=== PATIENT | male | born 1955 | race Caucasian/White ===

== ENCOUNTER → 2017-12-17 | Outpatient (CLI) | payer OTHER ==
[~2017-12-17] MED LIST: ALLOPURINOL 10100 M1 PO; AMITRIPTYLINE H10 M3 PO; ASPIR 8181 MG PO; ASPIRIN325 PO; ATIVAN0.5 MG PO; ATIVAN1 MG PO; AUGMENTIN 875875 MG PO; B12INJ IM; BACTRIM DS TAB1 EACH PO; BENADRYL25 MG PO; CENTRUM SILVER1 EAC4 PO; CHLORDIAZEPOXID25 M1 PO; CLOBETASOL PROP50 M1 TOP; COLACE 100 MG100 MG PO; COLACE100 MG PO; CORRECTOL5 M1 PO; DIABETA 5MG TABL5 MG; DICLOFENAC SODI75 MG PO; FLAGYL500 M1 PO; FOLIC ACID1 MG PO; GLUCOPHAGE1000 MG PO; HYDROCHLOROTHIA50 MG PO; HYDROCODON-ACE1 EAC7 PO; HYDROCODONE-AP1 EAC6 PO; INDOMETHACIN 2525 MG PO; INDOMETHACIN 5050 M1 PO; LANTUS SUBQ; LEVOTHYROXIN0.125 M1 PO; LEVOTHYROXINE0.2 M1 PO; LISINOPRIL20 MG; LISINOPRIL20 MG PO; LOPRESSOR25 PO; MAGOX 400400 MG PO; MEDROLDOSEPACK PO; MELATONIN3 MG PO; MILK OF MA2400 MG/10 PO; MIRALAX255 GM PO; MOBIC15 MG PO; NICOTINE TRANSD21 M1 TRANSDERM; NITROGLYCERIN0.4 MG SUBLING; NORCO 5-325 TA1 EACH PO; ONDANSETRON HCL4 M2 PO; OXYCODONE HCL 55 MG PO; PAXIL10 MG; PEPCID20 MG PO; PERCOCET 10-321 EACH PO; PHENERGAN 25 MG25 M1 PO; PRENATABS FA T1 EACH PO; PRILOSEC 20 MG20 MG PO; PRINZIDE 20-251 EACH PO; PROTONIX40 M2 PO; ROBAXIN 750 MG750 M1 PO; SEROQUEL 25 MG25 M1 PO; TRAMADOL 50 MG50 MG PO; TRIAMCINOLONE A80 G2 TOP; TRINATE TABLET1 TAB PO; TYLENOL325 MG PO; VICODIN 5-5001 EACH PO; VITAMIN B-1100 M1 PO; VITAMIN B-1100 M2 PO
--- NOTE | 2017-12-31 08:16 | PAINCON ---
[facility] [address] [place] [address] PAIN MANAGEMENT CONSULTATION Name: DANA CID [facility] [id number] Admission: 12/17/17 Attend Phys: Georgia Velazquez MD Discharge: Date of : 59 Report #: [id number] THIS REPORT FOR: //name// CC: Wei Velazquez DATE OF SERVICE: 12/17/2017 FOLLOWUP COMPLAINT: Pain in the left shoulder and neck. HISTORY OF PRESENT ILLNESS: The patient is a 62-year-old gentleman, who has been seen in the Pain Clinic because of pain and discomfort involving his arms, numbness and tingling down in his hands. The patient has undergone cervical epidural steroid injections in the past and gleaned good benefit from the past injections. At this juncture, he has noted pain, which started in about October. He is experiencing some return of pain and discomfort involving his neck and left shoulder area. He has been using ibuprofen. Notes that activities such as sitting, driving and other activities of daily living can be problematic. Denies any new trauma. Rates his pain today as a 5 on a scale of 1-10. ALLERGIES: ATIVAN. CURRENT MEDICATIONS: Ibuprofen 800 mg b.i.d. PAIN CLINIC ASSESSMENT: 1. The patient does not have a history of osteoarthritis or rheumatoid arthritis. 2. Height 5 feet 11 inches, weight 154 pounds, BMI is 21. 3. Vital signs: Blood pressure 117/67, pulse 94, respiratory rate 16, room air saturation 98%, temperature 98.7. 4. Pain score: 5-6/10. 5. Fall risk: The patient has not fallen in the last 3 months. 6. Blood thinners: The patient is not on a blood thinner 7. History of hypertension: The patient is being treated for hypertension. 8. Opioid therapy greater than 6 weeks: The patient is not receiving opioid therapy on a regular basis. 9. Risk assessment tool. 10. Functional assessment tool 11. Recreational drug use: Denies use of recreational drugs. 12. Tobacco use: The patient denies use of tobacco. 13. Alcohol use: The patient drinks alcoholic beverage weekly. PHYSICAL EXAMINATION: GENERAL: The patient is a well-developed, white male. Appears [place] [address] PAIN MANAGEMENT CONSULTATION Name: DANA CID Room: [facility]#: [id number] Admission: 12/17/17 Attend Phys: Georgia Velazquez MD Discharge: Date of : 59 Report #: [id number] ORIENTATION: He is alert and oriented x 3. AFFECT: Affect is appropriate. Speech is fluent. HEENT: Normocephalic, atraumatic. Extraocular eye muscles intact. Sclerae are nonicteric. Hearing within normal limits. Mucous membranes moist. NECK: Without adenopathy or JVD. HEART: Regular rate with normal S1, S2. LUNGS: Clear to auscultation without rales or rhonchi. ABDOMEN: Nontender. EXTREMITIES: Upper extremity, pain and discomfort in the left arm with some numbness in the shoulder and increased pain and discomfort in the neck area -- the patient has had pain, tingling down his left hand, not as problematic today. Muscle strength is judged to be 5/5 for the major muscle groups. Muscle bulk is symmetrical. MUSCULOSKELETAL: Without significant kyphosis, scoliosis or lordosis. Lower muscle strength is judged to be 5/5 for the major muscle groups. Sensation is within normal limits without sensory changes. IMPRESSION: 1. MRI of the cervical spine, C3-C4 intervertebral disk height with moderate to marked bilateral foraminal stenosis and the AP thecal sac with measurement of 0.9 cm. 2. C4-C5 central disk protrusion with effacement of the ventral thecal sac, bilateral facet arthropathy, stjckxtu-kf-vloetv left and moderate right neural foraminal stenosis with AP diameter and thecal distance of 0.8 cm. 3. C5-C6 bilateral hypertrophy of uncovertebral area with left paracentral disk bulging and protrusion. This is resulting in effacement of the central and left thecal sac. Bilateral facet arthropathy with ligamentum flavum thickening. There is ggumawcs-uv-sszlph bilateral neural foraminal stenosis and at least moderate central canal stenosis. AP diameter 0.7 cm. 4. C6-C7 bilateral facet arthropathy without significant ligamentum flavum thickening. AP diameter 0.9 cm. 5. Hypertension. RECOMMENDATIONS: We discussed treatment options with the patient. Risks and benefits of a cervical epidural steroid injection were again reviewed. Possible complications of the procedure were discussed. Possible complications include but are not limited to infection, increased muscle soreness, headache, bleeding, worsening of pain, nerve damage, spinal headache. The patient elects to proceed. PROCEDURE NOTE: The patient was assisted in getting on the table for the procedure. His neck was sterilely prepped with Betadine in the cervical area. 0.25% bupivacaine was used to numb the area. Fluoroscopy using AP as well as lateral imaging was used to guide placement of the needle. A total of 120 mg triamcinolone was injected after a 17-gauge Tuohy with loss of resistance technique was used to gain access to the epidural space. There was no CSF, heme [place] [address] [address] PAIN MANAGEMENT CONSULTATION Name: DANA CID Room: [facility]#: [id number] Admission: 12/17/17 Attend Phys: Georgia Velazquez MD Discharge: Date of : 59 Report #: [id number] or paresthesia. The patient tolerated the procedure well. There were no complications. A total of 37 seconds fluoroscopy time was used. He remained in the Pain Clinic for an appropriate amount of time. Band-Aid was placed. There was no bleeding. He will follow up in the future as needed. We would like to thank you for letting us participate in his care. We hope he continues to improve. <ELECTRONICALLY SIGNED> By: Georgia Velazquez MD 12/31/17 0816 0839 1011N. Gopal Velazquez MD /nt
== END | disposition home or self-care (01) ==
LOC: M.PC 03:05
DX: M50.121 Cervical disc disorder at C4-C5 level with radiculopathy (principal); M48.02 Spinal stenosis, cervical region; M46.92 Unspecified inflammatory spondylopathy, cervical region; I10 Essential (primary) hypertension; Z79.891 Long term (current) use of opiate analgesic; Z88.8 Allergy status to other drugs, medicaments and biological substances; Z87.19 Personal history of other diseases of the digestive system; Z79.899 Other long term (current) drug therapy; Z98.890 Other specified postprocedural states

== ENCOUNTER → 2018-04-17 | Outpatient (CLI) | payer OTHER ==
--- NOTE | 2018-05-07 16:41 | PAINCON ---
[facility] [address] [place] [address] PAIN MANAGEMENT CONSULTATION Name: DANA CID [facility] [id number] Admission: 04/17/18 Attend Phys: Georgia Velazquez MD Discharge: Date of : 59 Report #: [id number] THIS REPORT FOR: //name// CC: Wei Velazquez DATE OF SERVICE: 04/17/2018 FOLLOWUP COMPLAINT: Left shoulder pain. HISTORY OF PRESENT ILLNESS: The patient is a 62-year-old gentleman with a history of cervical radiculopathy. He returns today indicating that his pain continues to be problematic. It is radiating down his left shoulder into his arm. He has gleaned benefits from past injections. Last injection was in 11/2017. At this juncture, he has noticed that his pain has increased. Pain has risen to the level of 6/10. Notes that the pain is worse with sitting, driving a car and other activities. He has had no additional trauma since we saw him last. He has been working a part-time job. Noticed that cleaning at [employer] tends to exacerbate his discomfort. 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 ALLERGIES: ATIVAN. CURRENT MEDICATIONS: Ibuprofen 800 mg. PAIN CLINIC ASSESSMENT: 1. The patient does not have a history of osteoarthritis or rheumatoid arthritis. 2. Height 5 feet 11 inches, weight 144 pounds, BMI is 20. 3. Vital signs: Blood pressure 100/58, heart rate 101, respiratory rate 16, room air saturation 97%, temperature 98 pain score 6/10. 4. Fall risk. The patient has not fallen in the last 3 months. 5. Blood thinner. The patient is not on a blood thinning medication. 6. Hypertension. The patient is being treated for hypertension. 7. Opioid therapy greater than 6 weeks. The patient is not receiving opioid therapy. 8. Risk assessment tool. 9. Functional assessment tool. 10. Recreational drug use. The patient denies use of recreational drugs. 11. Tobacco: The patient denies use of tobacco. 12. Alcohol: The patient denies use of alcoholic beverages. PHYSICAL EXAMINATION: GENERAL: The patient is a well-developed, well-nourished white male. Appears his stated age. He is alert and oriented x 3. [place] [address] PAIN MANAGEMENT CONSULTATION Name: DANA CID Leticia Room: [facility]#: [id number] Admission: 04/17/18 Attend Phys: Georgia Velazquez MD Discharge: Date of : 59 Report #: [id number] is fluent. HEENT: Normocephalic, atraumatic. Extraocular eye muscles intact. Sclerae nonicteric. Hearing is within normal limits. Mucous membranes are moist. NECK: Without adenopathy or JVD. HEART: Regular rate, normal S1, S2. LUNGS: Clear to auscultation without rhonchi or rales. ABDOMEN: Nontender. EXTREMITIES: Upper extremities. The patient notes pain and discomfort involving his left arm with numbness and tingling radiating down to his left shoulder with increased pain in his neck and tingling down into his left hand. Muscle strength is judged to be 4+/5 on the left and 5/5 on the right in the upper extremity. Muscle bulk and symmetry remains stable. MUSCULOSKELETAL: Without significant scoliosis, kyphosis or lordosis. Lower muscle strength is judged to be 5/5 in the major muscle groups. Sensation in the lower extremities within normal limits. Negative sensory changes/no sensory changes in the lower extremity. IMPRESSION: 1. History of cervical spine changes at C3-C4 intervertebral disk height with moderate to marked bilateral foraminal stenosis and the AP thecal sac with measurement of 0.9 cm. 2. C4-C5 central disk protrusion with effacement of the ventral thecal sac, bilateral facet arthropathy, moderate to marked left and moderate right neural foraminal stenosis with AP diameter and thecal distance of 0.8 cm. 3. C5-C6 bilateral hypertrophy of the uncovertebral area with left paracentral disk bulging and protrusion. This is resulting in effacement of the central and left thecal sac. Bilateral facet arthropathy with ligamentum flavum thickening. There is moderate to marked bilateral neural foraminal stenosis and at least moderate central canal stenosis. AP diameter is 0.7 cm. 4. C6-C7 bilateral facet arthropathy without significant ligamentum flavum thickening. AP diameter is 0.9. 5. Hypertension. RECOMMENDATIONS: We discussed treatment options with the patient. Risks and benefits of a cervical epidural steroid injection were again discussed. Risks and benefits of the procedure, which could include but are not limited to infection, increased muscle soreness, headache, bleeding, worsening of pain, nerve damage were discussed. The patient elects to proceed. PROCEDURE NOTE: The patient was taken to the procedure room. He was assisted in getting on the examination table. A pillow was placed under his anterior chest in the area of his pectoralis muscles to improve positioning. His back had been sterilely prepped with a Betadine solution. Bupivacaine 0.25% was infiltrated. Fluoroscopy using anterior, posterior as well as lateral viewing were instituted. A 17-gauge Tuohy with loss of resistance technique was used to gain access to the epidural space. There was no CSF, heme or paresthesia. A 22 [facility] [address] [place] [address] PAIN MANAGEMENT CONSULTATION Name: DANA CID Room: [facility]#: [id number] Admission: 04/17/18 Attend Phys: Georgia Velazquez MD Discharge: Date of : 59 Report #: [id number] fluoroscopy time was used. The patient remained in the pain clinic for an appropriate amount of time. He will follow up in the future as needed. We would like to thank you for letting us participate in his care. We hope he continues to improve. <ELECTRONICALLY SIGNED> By: Georgia Velazquez MD 05/07/18 1641 164 1932N. Gopal Velazquez MD /nt
== END | disposition home or self-care (01) ==
LOC: M.PC 03:30
DX: M50.122 Cervical disc disorder at C5-C6 level with radiculopathy (principal); M46.92 Unspecified inflammatory spondylopathy, cervical region; G89.29 Other chronic pain; I10 Essential (primary) hypertension; Z88.8 Allergy status to other drugs, medicaments and biological substances; Z79.899 Other long term (current) drug therapy; Z87.19 Personal history of other diseases of the digestive system

== ENCOUNTER → 2018-05-29 | Outpatient (CLI) | payer OTHER ==
--- NOTE | 2018-06-23 10:00 | PAINCON ---
[facility] [address] [place] [address] PAIN MANAGEMENT CONSULTATION Name: DANA CID Room: [facility]#: [id number] Admission: 05/29/18 Attend Phys: Georgia Velazquez MD Discharge: Date of : 59 Report #: [id number] THIS REPORT FOR: //name// CC: Wei Velazquez DATE OF SERVICE: 05/29/2018 FOLLOWUP COMPLAINT: The pain has increased on the left side. FOLLOWUP HISTORY: The patient is a 62-year-old gentleman who has been followed in the pain clinic because of left shoulder pain. He returns today indicating that his pain level has increased. He rates it as a 4/10. Notes that stress at work plays a part. He has also had a recent of a friend, which has become problematic and is somewhat depressing. Pain is radiating down into his left shoulder and to the level of his elbow. Finds that the hydrocodone is helpful. Does not take it on a daily basis, takes it as needed. Feels that the methocarbamol 750 mg is helpful. He notes that sitting can be problematic. Driving is problematic. Certain positions exacerbate his discomfort. He has had no complication from the previous injections. 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 He is working about 4-1/2 hours per night. ALLERGIES: ATIVAN. CURRENT MEDICATIONS: Ibuprofen has been used, Robaxin 750 mg, and hydrocodone 5/325 one p.o. q.4-6 hours p.r.n. has been written, a total 45 tablets have been issued. PAIN CLINIC ASSESSMENT/PQRS: 1. The patient does not have a history of osteoarthritis or rheumatoid arthritis. 2. Height 5 feet 11 inches, weight 140 pounds, BMI is 19. 3. Vital signs: Blood pressure 99/62, heart rate 79, respiratory rate 18, room air saturation 97%, temperature 97.6. 4. Pain scale 4/10 for the pain score. 5. Fall risk. The patient has not fallen in the last 3 months. 6. Blood thinner. The patient is not on a blood thinning medication. 7. History of hypertension. The patient is not being treated for hypertension. 8. Risk assessment tool, low for opioid use. 9. Functional assessment tool. 10. Recreational drug use, the patient denies. 11. Tobacco: The patient denies. 12. Alcohol: The patient denies frequent [place] [address] PAIN MANAGEMENT CONSULTATION Name: DANA CID Leticia Room: [facility]#: [id number] Admission: 05/29/18 Attend Phys: Georgia Velazquez MD Discharge: Date of : 59 Report #: [id number] PHYSICAL EXAMINATION: GENERAL: The patient is a well-developed, well-nourished white male. He appears his stated age. He is alert and oriented x 3. His affect is appropriate. Speech is fluent. HEENT: Normocephalic, atraumatic. Extraocular eye muscles intact. Sclerae nonicteric. Mucous membranes are moist. Hearing is within normal limits. NECK: Without adenopathy or JVD. Notes some pain and discomfort in the left shoulder area with pain radiating down into the left elbow area. HEART: Regular rate, normal S1, S2. LUNGS: Clear to auscultation without rhonchi or rales. ABDOMEN: Nontender. EXTREMITIES: Upper extremity muscle strength is judged to be 5/5 on the right and 5-/5 for the left upper extremity. Lower extremity muscle strength is judged to be 5/5 without sensory changes. Muscle bulk is symmetric. The patient without significant kyphosis, scoliosis, or lordosis. IMPRESSION: 1. History of cervical radiculopathy with pain and discomfort radiating down in the left C5-C6 dermatomal distribution. 2. C4/C5 disk protrusion with effacement of the ventral sac. Bilateral arthropathy. 3. Wbrzttsx-ym-xgvqvb left and moderate right neural foraminal stenosis with AP diameter and thecal distance of 0.8 cm. 2. C5/C6 bilateral hypertrophy of the uncovertebral area with left paracentral disk bulging. This results in effacement of the central and left thecal sac. Bilateral facet arthropathy with ligamentum flavum thickening. There is pwerclpx-jw-mcxctf bilateral neural foraminal stenosis and at least moderate central canal stenosis with an AP diameter of 0.7. 3. C6/C7. Bilateral facet arthropathy without significant ligamentum flavum thickening. AP diameter 0.9. 4. Hypertension. RECOMMENDATIONS: We discussed treatment options with the patient. Risks and benefits of a cervical epidural steroid injection were again reviewed. Possible complications of the procedure were discussed. They include but are not limited to infection, increased muscle soreness, headache, bleeding, worsening of pain, no improvement in pain. The patient elects to proceed. PROCEDURE NOTE: The patient was placed in the prone position. Fluoroscopy was used to identify the C7-T1 interspace. This area had been sterilely prepped with Betadine and infiltrated with 0.25% bupivacaine. A 17-gauge Tuohy with loss of resistance technique was used to gain access to the epidural space. There was no CSF, heme or paresthesia. A total of 120 mg triamcinolone was injected in the epidural area. A left paracentral approach was used using fluoroscopy. An injection was performed without complication. The patient remained in the pain clinic for an appropriate amount of time[place] [address] PAIN MANAGEMENT CONSULTATION Name: DANA CID Room: [facility]#: [id number] Admission: 05/29/18 Attend Phys: Georgia Velazquez MD Discharge: Date of : 59 Report #: [id number] up in the future as needed. A script for hydrocodone 5/325 has been rewritten. Methocarbamol has been rewritten as well. He will call us if he has any concerns. We would like to thank you for letting us participate in his care. We hope he continues to improve. <ELECTRONICALLY SIGNED> By: Georgia Velazquez MD 06/23/18 1000 1431 1600N. Gopal Velazquez MD /DELISA
== END | disposition home or self-care (01) ==
LOC: M.PC 01:46
DX: M50.321 Other cervical disc degeneration at C4-C5 level (principal); M48.02 Spinal stenosis, cervical region; G89.29 Other chronic pain; M46.92 Unspecified inflammatory spondylopathy, cervical region; I10 Essential (primary) hypertension; Z79.891 Long term (current) use of opiate analgesic; Z88.8 Allergy status to other drugs, medicaments and biological substances

== ENCOUNTER 2018-07-04 14:26 | Observation (INO) | payer OTHER ==
[~2018-07-04] VITALS: Ht 180.3 cm; Wt 72.1 kg
[~2018-07-04 14:26] MED LIST changes: -ASPIR 8181 MG PO; -NITROGLYCERIN0.4 MG SUBLING
[2018-07-04 14:31] VITALS: BP 107/74
[2018-07-04 14:50] LABS: HEMOGLOBIN 13.3 gm/dL (14.0-18.0); MCH 31.1 pg (26.0-34.0); MCHC 32.5 g/dL (28.0-37.0); MCV 95.6 fL (80.0-100.0); MPV 10.3 fl. (7.2-11.1); NUCLEATED RBCS 0 /100WBC; PLATELET COUNT* 244 thou/uL (150-400); RBC 4.29 mil/uL (4.50-6.00); RDW-CV 17.9 % (10.5-14.5); WBC 12.4 thou/uL (4.0-11.0)
[2018-07-04 15:05] LABS: ANION GAP 7 mmol/L (7-16); BUN 50 mg/dL (7-18); CHLORIDE 102 mmol/L (98-107); CO2 25 mmol/L (21-32); CREATININE 1.5 mg/dL (0.6-1.3); GLUCOSE 188 mg/dL (70-99); POTASSIUM 3.8 mmol/L (3.5-5.1); SODIUM 134 mmol/L (136-145)
[2018-07-04 15:12] LABS: ALBUMIN 3.3 g/dL (3.4-5.0); ALKALINE PHOSPHATASE 67 U/L (46-116); SGOT 35 U/L (15-37); SGPT 67 U/L (30-65); TOTAL BILIRUBIN 0.7 mg/dL (<0.1-1.0); TOTAL PROTEIN 6.6 g/dL (6.4-8.2); TROPONIN-I LEVEL <0.06 ng/mL (<0.06)
[2018-07-04 15:20] LABS: ABSOLUTE EOSINOPHILS 0.1 thou/uL (0.0-0.7); ABSOLUTE LYMPHOCYTES 0.7 thou/uL (0.8-5.3); ABSOLUTE MONOCYTES 0.6 thou/uL (0.0-1.2); ABSOLUTE NEUTROPHILS 10.9 thou/uL (1.6-8.1); PLATELET ESTIMATE ADEQUATE
[2018-07-04 15:21] LABS: ANISOCYTOSIS 1+; MICROCYTES 1+
--- NOTE | 2018-07-04 16:21 | NUR ---
RANDA SHERIDAN) NOTIFIED UPON PT RETURN FROM CT.PT CONNECTED OT O2 AND MONITOR
--- NOTE | 2018-07-04 17:10 | NUR ---
MEAL TRAY ORDERED BY US FROM DIETARY
[2018-07-04 17:19] LABS: URINE BILIRUBIN NEGATIVE (Negative); URINE BLOOD NEGATIVE (Negative); URINE CLARITY CLEAR; URINE COLOR YELLOW; URINE GLUCOSE-RANDOM TRACE (Negative); URINE KETONES NEGATIVE (Negative); URINE LEUKOCYTES NEGATIVE (Negative); URINE NITRITE NEGATIVE (Negative); URINE PROTEIN NEGATIVE (Negative); URINE UROBILINOGEN 0.2 E.U./dl (0.2-1.0)
[2018-07-04 17:29] LABS: AMP/METHAMP POSITIVE (Negative); BARBITURATES Negative (Negative); BENZODIAZEPINES Negative (Negative); COCAINE Negative (Negative); METHADONE Negative (Negative); OPIATES POSITIVE (Negative); PCP Negative (Negative); THC Negative (Negative)
[2018-07-04 18:56] VITALS: BP 102/70
[2018-07-04 19:01] VITALS: BP 99/71
[2018-07-04 20:22] LABS: CREATININE 1.6 mg/dL (0.6-1.3); MAGNESIUM 1.1 mg/dL (1.8-2.4); POTASSIUM 3.9 mmol/L (3.5-5.1)
[2018-07-05] VITALS: BP 100/71
[2018-07-05 04:00] VITALS: BP 102/74
--- NOTE | 2018-07-05 05:26 | NUR ---
ASSUMED PATIETN CARE AT 2100. PATIENT ALERT AND ORIENTED TIMES FOUR. MUD ENGINEER COMPLETED CHARTED. PATIENT ABLE TO AMBULATE TO THE RESTROOM AT THE BEGINNING OF SHIFT. DRESSING IN PLACE TO RIGHT FOTT THAT WAS PLACED ON 07/05/18 AT HIS PCP'S OFFICE. PATIENT STATES "I BURNED IT WITH A HEATING PAD TRYING TO RELIEVE PAIN IN MY FOOT" SWELLING NOTED THIS MORNING TO RIGHT FOOT AND ANKLE. IV PATENT TO FLUSHES. RIGHT FOOT RAISED ON 2 PILLOWS. SEVERAL SMALL SIN TEARS NOTED. HOURLY ROUNDING COMPLETED DOCUMENTED. TURNS SELF INDEPENDENTLY IN BED.
[2018-07-05 05:39] LABS: ANION GAP 8 mmol/L (7-16); BUN 39 mg/dL (7-18); CALCIUM 8.5 mg/dL (8.5-10.1); CHLORIDE 106 mmol/L (98-107); CO2 22 mmol/L (21-32); CREATININE 1.6 mg/dL (0.6-1.3); GLUCOSE 147 mg/dL (70-99); POTASSIUM 4.2 mmol/L (3.5-5.1); SODIUM 136 mmol/L (136-145); TROPONIN-I LEVEL <0.06 ng/mL (<0.06)
--- NOTE | 2018-07-05 07:34 | NUR ---
ATTEMPTED TO TAKE WOUND PHOTO OF PATIENTS BURN. PATIENT ADAMANTLY REFUSED STATING "DO NOT TAKE IT OFF, YOU WILL PEEL ALL OF THE SKIN OFF THE TOP OF MY FOOT, IT IS HEALING" "I ONLY CHANGE IT ONCE A DAY, AFTER I SHOWER" WOUND NURSE CONSULTED
[2018-07-05 08:00] VITALS: BP 121/83
[2018-07-05] MEDS ORDERED: ASPIR 8181 MG PO (08:53)
[2018-07-05] MEDS ORDERED: NITROGLYCERIN0.4 MG SUBLING (08:53)
[2018-07-05 12:00] VITALS: BP 100/81
--- NOTE | 2018-07-05 12:24 | NUR ---
ASSUMED CARE OF PT AT 0730. PT RESTING IN BED. PT A&0X4, STATING BILATERAL FEET HURT AND UNABLE TO PUT WEIGHT ON THEM SINCE LAST NIGHT. REDNESS AND SWELLING NOTED TO RIGHT FOOT- WARM TO THE TOUCH. DRESSING IN PLACE FROM PER PT. PT REFUSING TO LET NURSING REMOVE DRESSING THAT IS IN PLACE. EDUCATION GIVEN, PT CONTINUES TO REFUSE. BRIJESH HERE TO SEE PT. ORDERS RECEIVED FOR VENOUS ULTRASOUND AND DOPPLER AORTA. CARDIOLOGY CONSULT IN PLACE. DR MARTIN HERE TO SEE PT AND OKAY FOR PT TO DISCHARGE HOME AND FOLLOW UP OUTPT FOR ECHO. PT GOAL FOR TODAY IS REPLACE MAGNESIUM AND DISCHARGE PLANNING FOR THIS AFTERNOON. 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 ON RA SAT UPPER 90'S. DENIES ANY SHORTNESS OF BREATH AT REST. PT UP AD JASMINE BUT STATES CAN NOT PUT WEIGHT ON FEET. PT ON 2,000 ML FLUID RESTRICTION. AM ASSESSMENT CHARTED. MEDICATIONS PER NOV. PT REPOSITIONS SELF. HOURLY ROUNDING OBSERVED. BED IN LOW POSITION. CALL LIGHT WITHIN REACH. WILL CONTINUE PLAN OF CARE.
--- NOTE | 2018-07-05 12:49 | EKG ---
[place] [address] ELECTROCARDIOGRAM REPORT Name: DANA CID Room: [address] ADM IN M.R.#: [id number] Admission: 07/04/18 Attend Phys: Koffi Finley MD Discharge: Date of : 59 Report #: [id number] THIS REPORT FOR: //name// 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1955 Requested By: Feliberto Hankins Order Number: [id number] MD: Nguyễn Felton Measurements Intervals [place] Rate: 111 P: 3 ME: 184 QRS: 173 QRSD: 89 T: 17 QT: 332 QTc: 451 Interpretive Statements Sinus tachycardia Right atrial enlargement Consider right ventricular hypertrophy t inversion anterior leads Compared to ECG 12/21/2015 01:28:34 Atrial abnormality now present ST (T wave) deviation now present Left-axis deviation no longer present Poor R-wave progression no longer present Electronically Signed On 07-05-2018 12:49:15 CDT by Nguyễn Felton [email or web address] <ELECTRONICALLY SIGNED> By: Nguyễn Felton MD, FACC 07/05/18 1249 1433 1433 Nguyễn Felton MD, FACC /EPI
--- NOTE | 2018-07-05 12:50 | EKG ---
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1955 Requested By: Feliberto Hankins Order Number: [id number] MD: Nguyễn Felton Measurements Intervals [place] Rate: 91 P: 47 MT: 190 QRS: 224 QRSD: 93 T: -15 QT: 365 QTc: 450 Interpretive Statements Sinus rhythm Markedly posterior QRS axis Abnormal T, consider ischemia, anterior leads Compared to ECG 12/21/2015 01:28:34 Posterior QRS axis now present T-wave abnormality now present Possible ischemia now present Sinus tachycardia no longer present Left-axis deviation no longer present Poor R-wave progression no longer present Electronically Signed On 07-05-2018 12:49:59 CDT by Nguyễn Felton [email or web address] <ELECTRONICALLY SIGNED> By: Nguyễn Felton MD, FACC 07/05/18 1249 1635 1635 Nguyễn Felton MD, FACC /EPI
[2018-07-05 16:31] VITALS: BP 100/81
--- NOTE | 2018-07-05 17:57 | NUR ---
DISCHARGE ORDERS RECEIVED. DISCHARGE INSTRUCTIONS, CARE NOTES AND FOLLOW UP APPTS GIVEN TO PT. PT COMMUNICATES UNDERSTANDING OF DISCHARGE TEACHING. IV AND HAY BALER REMOVED. PT DISCHARGED WITH ALL BELONGINGS AND PAPERWORK VIA WHEELCHAIR WITH NURSING STAFF TO FRIENDS OWN PERSONAL VEHICLE.
--- NOTE | 2018-07-07 09:11 | CON ---
[address] [address] CONSULTATION Name: DANA CID Room: [address] Alisson Maciel#: [id number] Admission: 07/04/18 Attend Phys: Koffi Finley MD Discharge: 07/05/18 Date of : 59 Report #: [id number] THIS REPORT FOR: //name// CC: Leonarda Finley REQUESTING PHYSICIAN: Koffi Finley MD REASON FOR CONSULTATION: Abnormal EKG. HISTORY OF PRESENT ILLNESS: The patient is a 62-year-old man referred to the hospital. Actually, he had initially presented to his primary care doctor's office with foot pain and then had burned himself apparently on the top of his right foot and then somehow because of shortness of breath, had fatigue. He had an ECG, which demonstrated nonspecific T-wave abnormality and mild conduction delay. Clinically, the patient denies chest pain or pressure. He has no prolonged episodes of nausea, vomiting, chest pressure, tightness etc. He presents in sinus rhythm and had serial lab testing including cardiac troponin levels, which were negative times 4, different sets of troponins. His creatinine was elevated at 1.6. His CTA of the chest demonstrated no evidence of pulmonary embolus. There are some mild atherosclerotic changes in the aorta, but not the precordium. He at this time remains asymptomatic. PAST MEDICAL HISTORY: Significant for the following: History of remote abscess, questionable history of coronary artery disease, alcohol abuse, methamphetamine abuse, dehydration, hyponatremia. ALLERGIES: ATIVAN. No chronic medications. PHYSICAL EXAMINATION: VITAL SIGNS: Stable, 100/70s, pulse in the 90s, temperature is afebrile. GENERAL: This is a thin, middle-aged male. He is alert, oriented, no apparent distress. NECK: Supple. No jugular venous distention. CARDIOVASCULAR: Regular. I cannot hear a murmur. LUNGS: Clear to auscultation bilaterally, no rales. ABDOMEN: Nontender. EXTREMITIES: No peripheral edema. SKIN: Warm and dry. SOCIAL HISTORY: The patient has aforementioned substance abuse. He is apparently retired and . 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 [address] CONSULTATION Name: DANA CID [address]#: [id number] Admission: 07/04/18 Attend Phys: Koffi Finley MD Discharge: 07/05/18 Date of : 59 Report #: [id number] REVIEW OF SYSTEMS: MUSCULOSKELETAL: He complains of bilateral foot pain and swelling. NEUROLOGIC: Denies seizures. HEMATOLOGIC: No anemia or bleeding disorders. RENAL: No history of kidney failure. ENDOCRINE: He is not known to be a diabetic. CARDIOVASCULAR: No chest pain. No orthopnea, positive dyspnea with heavy exertion. No palpitations. SKIN: No rashes. HEMATOLOGIC: No anemia or bleeding disorders. RENAL: No history of kidney failure. HOME MEDICATIONS: Hydrochlorothiazide, lisinopril, Robaxin, metoprolol 25 mg daily, Protonix, Synthroid, and allopurinol. LABORATORY DATA: Sodium is 134, potassium is 3.8, chloride 102, CO2 is 25, BUN is 15, creatinine is 1.5. Hemoglobin is 13.3. IMPRESSION: 1. Abnormal EKG. He does have cardiovascular risk factors, but is ruled out for myocardial infarction and is asymptomatic. We will arrange for outpatient testing with an echocardiogram and possibly a stress test, which may need to be pharmacologic. As such, the patient is asymptomatic. 2. Mild dehydration. I would discontinue his thiazide diuretic. 3. Hypertension. I would continue with his beta scooter and lisinopril. He should be on aspirin daily because of his increased cardiovascular risk factors. <ELECTRONICALLY SIGNED> By: Chin Dawson MD, FACC 07/07/18 0911 [id number] Felton MD, FACC /nt
== END 2018-07-05 17:57 | disposition home or self-care (01) ==
LOC: M.ERS 14:26 → M.TBA-ER 17:15 → M.2W 17:15
PROVIDERS: Emergency Medicine Emergency Medical Services; ADMIT Internal Medicine
DX: I12.9 Hypertensive chronic kidney disease with stage 1 through stage 4 chronic kidney disease, or unspecified chronic kidney disease (principal); E11.22 Type 2 diabetes mellitus with diabetic chronic kidney disease; E11.42 Type 2 diabetes mellitus with diabetic polyneuropathy; N18.3 Chronic kidney disease, stage 3 (moderate); F19.10 Other psychoactive substance abuse, uncomplicated; F12.90 Cannabis use, unspecified, uncomplicated; K21.9 Gastro-esophageal reflux disease without esophagitis; E03.9 Hypothyroidism, unspecified; E78.5 Hyperlipidemia, unspecified; L40.9 Psoriasis, unspecified; R94.31 Abnormal electrocardiogram [ECG] [EKG]; E86.0 Dehydration; I24.9 Acute ischemic heart disease, unspecified; Z98.890 Other specified postprocedural states; F17.210 Nicotine dependence, cigarettes, uncomplicated; Z90.49 Acquired absence of other specified parts of digestive tract; Z23 Encounter for immunization

== ENCOUNTER → 2018-10-07 | Outpatient (CLI) | payer OTHER ==
[~2018-10-07] MED LIST changes: +ASPIR 8181 MG PO; +METFORMIN HCL500 MG PO; +NITROGLYCERIN0.4 MG SUBLING
--- NOTE | ~2018-10-07 | PAINCON ---
[facility] [address] [place] [address] PAIN MANAGEMENT CONSULTATION Name: DANA CID Room: [facility] Raheem#: [id number] Admission: 10/07/18 Attend Phys: Georgia Velazquez MD Discharge: Date of : 59 Report #: [id number] THIS REPORT FOR: //name// CC: Wei Velazquez DATE OF SERVICE: 10/07/2018 CHIEF COMPLAINT: Pain in the neck and left arm. FOLLOWUP HISTORY: The patient is a 63-year-old gentleman who has been seen in the Pain Clinic in the past because of left shoulder pain. He returns today indicating that he is having pain and discomfort in his left arm. 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 Feels that this activity has increased pain and discomfort in his left arm. He is experiencing the pain that radiates from the shoulder down into his elbow. He is contemplating cataract surgery. He states that his surgeon has said that it is okay to undergo a cervical epidural steroid injection today. He has returned to the Pain Clinic for that treatment course. 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 The patient was seen in the Emergency Room on 06/2018 indicate intermittent use of meth, who would like to keep this confidential and away from his family. ALLERGIES: ATIVAN. CURRENT MEDICATIONS: Ibuprofen. The patient has used Robaxin 750 mg in the past. PAST MEDICAL HISTORY: 1. GERD. 2. Hypertension. 3. Hyperlipidemia. 4. Hypothyroidism. 5. Degenerative joint disease 6. Peripheral neuropathy. 7. Gout 8. History of alcohol abuse. 9. Psoriasis. 10. Alcohol withdrawal seizures PAST SURGICAL HISTORY: 1 Bilateral knee arthroscopy x 3. 2. Right shoulder surgery in 1994. 3. Right ankle ____ surgery in 1992. PAIN CLINIC ASSESSMENT/PQRS: [place] [address] PAIN MANAGEMENT CONSULTATION Name: DANA CID Room: [facility]#: [id number] Admission: 10/07/18 Attend Phys: Georgia Velazquez MD Discharge: Date of : 59 Report #: [id number] 1. The patient does have a history of osteoarthritis and some shoulder arthritic changes. The patient has not been treated for rheumatoid arthritis. 2. Height 5 feet 11 inches, weight 139 pounds, BMI is 19. 3. Vital signs: Blood pressure 98/65, heart rate 102, respiratory rate 16, room air saturation is about 97%, temperature 97.5. 4. Pain intensity 11/16. 5. Fall risk. The patient has not fallen in the last 3 months. 6. Blood thinner. The patient is not on a blood thinning medication. 7. Hypertension. The patient is not being treated for hypertension. 8. Risk assessment tool elevated for opioid use. 9. Functional assessment tool. 10. Recreational drug use. The patient has admitted to use of meth in the past. 11. Tobacco: The patient denies use of tobacco. 12. Alcohol: The patient denies use of alcoholic beverages at this juncture. PHYSICAL EXAMINATION: GENERAL: The patient is a well-developed, somewhat thin white male. Appears his stated age. He is alert and oriented x 3. His affect is appropriate. Speech is fluent. HEENT: Normocephalic, atraumatic. Extraocular eye muscles intact. Sclerae nonicteric. Mucous membranes are moist. Hearing is within normal limits. NECK: Without adenopathy or JVD. The patient has some pain and discomfort with numbness and tingling involving the left arm. Muscle strength is judged to be 4/5 for the left arm. Has pain that is radiating down into the elbow. HEART: Regular rate. LUNGS: Clear to auscultation. ABDOMEN: Nontender. EXTREMITIES: Lower extremity muscle strength judged to be 5-/5 for the major muscle groups in the lower extremities. His muscle bulk is symmetric. The patient without significant scoliosis, kyphosis or lordosis. The patient has some rash in the lower portion of his back that looks similar to psoriatic arthritic raised rash. IMPRESSION: 1. History of cervical radiculopathy with pain radiating down to the left arm. 2. History of left cervical changes at C6-C7 with AP diameter of 0.9. The patient with C5-C6 area of moderate central canal stenosis with AP diameter of 0.7. 3. Cervical radiculopathy. 4. Gastroesophageal reflux disease. 5. Hypertension. 6. Hyperlipidemia. 7. Hypothyroidism. 8. Degenerative joint disease 9. [place] [address] PAIN MANAGEMENT CONSULTATION Name: DANA CID Room: [facility]#: [id number] Admission: 10/07/18 Attend Phys: Georgia Velazquez MD Discharge: Date of : 59 Report #: [id number] 10. Gout 11. History of alcohol abuse. 12. Psoriasis. 13. Alcohol withdrawal seizures RECOMMENDATIONS: We discussed treatment options with the patient. Risks and benefits of a cervical epidural steroid injection were discussed. Possible complications of the procedure were reviewed. The patient elects to proceed. The patient will undergo a cervical epidural steroid injection. The patient's questions were answered. He was taken to the procedure area. He was assisted in getting on the examination table. A pillow was placed under his shoulders to both straighten and improve positioning. PROCEDURE NOTE: Back was sterilely prepped with a Betadine solution. It was allowed to dry. At the C7-T1 interspace, a 0.25% bupivacaine was injected with a 25-gauge needle to numb the area. A 17-gauge Tuohy with loss of resistance technique using at the C7-T1 interspace was then advanced to the epidural space. There was no CSF, heme or paresthesia. Aspiration was negative. Total of 120 mg triamcinolone was injected. The patient tolerated the procedure well. There were no complications. He will follow up in the future as needed. We would like to thank you for letting us participate in his care. We hope he continues to improve. By: [id number]. Gopal Velazquez MD /aleida
== END | disposition home or self-care (01) ==
LOC: M.PC 09-25 10:20
DX: M54.12 Radiculopathy, cervical region (principal); G89.29 Other chronic pain; M19.90 Unspecified osteoarthritis, unspecified site; I10 Essential (primary) hypertension; E78.5 Hyperlipidemia, unspecified; E03.9 Hypothyroidism, unspecified; G62.9 Polyneuropathy, unspecified; K21.9 Gastro-esophageal reflux disease without esophagitis; M10.9 Gout, unspecified; L40.9 Psoriasis, unspecified; K70.10 Alcoholic hepatitis without ascites; Z88.8 Allergy status to other drugs, medicaments and biological substances; Z79.899 Other long term (current) drug therapy; Z98.890 Other specified postprocedural states; Z87.19 Personal history of other diseases of the digestive system

== ENCOUNTER → 2019-01-29 | Outpatient (CLI) | payer OTHER ==
--- NOTE | ~2019-01-29 | PAINCON ---
[address] [address] PAIN MANAGEMENT CONSULTATION Name: DANA CID Room: [facility] LuisHayleyAnithaHayley#: [id number] Admission: 01/29/19 Attend Phys: Georgia Velazquez MD Discharge: Date of : 59 Report #: [id number] THIS REPORT FOR: //name// CC: Wei Velazquez DATE OF SERVICE: 01/29/2019 CHIEF COMPLAINT: Pain in the left arm, which is increased. HISTORY: The patient is a 63-year-old gentleman who has been followed in the pain clinic because of chronic pain in the upper extremity. He has cervical radicular pain. He has undergone epidural steroid injections in the past to help decrease his pain. Overall, these have been helpful. He has noted worsening of his pain over the last few weeks. It has become quite problematic. It is significantly impacting his ability to engage in activities of daily living. He rates it as a 7/10. He has pain, which primarily radiates down into his left arm. Has shoulder pain and it involves his elbow. He has tried ibuprofen and notes that virtually any activity exacerbates his pain. Pain improves with use of cold, heat as well as with rest. He has returned to the pain clinic today, desiring another cervical epidural steroid injection to help quell his pain. ALLERGIES: ATIVAN. CURRENT MEDICATIONS: Ibuprofen, allopurinol 100 mg, aspirin 81 mg, levothyroxine 0.125 mg, lisinopril/hydrochlorothiazide 20/25, metformin 500 mg b.i.d., nitroglycerin 0.4 mg sublingual, Protonix 40 mg, and Otezla 30 mg b.i.d. PAIN CLINIC ASSESSMENT AND PQRS: 1. The patient does have a history of osteoarthritis in his shoulders and arthritic changes. The patient is not being treated for rheumatoid arthritis. 2. Height 5 feet 11 inches, weight 146 pounds, BMI is 20. 3. Vital signs: Blood pressure 120/86, heart rate 118, respiratory rate 16, room air saturation 97%, and temperature 97.5. 4. Pain intensity is 7/10. 5. Fall history: The patient has not fallen in the last 3 months. 6. Blood thinner. The patient is not on a blood thinning medication. 7. Hypertension. The patient is not being treated for hypertension. 8. Risk assessment tool, elevated for opioid use. 9. Functional assessment tool. 10. Recreational drug use. The patient denies use of recreational drugs. He has used meth in the past. 11. Tobacco: The patient denies use of tobacco. 12. Alcohol: The patient [place] [address] PAIN MANAGEMENT CONSULTATION Name: DANA CID Room: [facility]#: [id number] Admission: 01/29/19 Attend Phys: Georgia Velazquez MD Discharge: Date of : 59 Report #: [id number] PHYSICAL EXAMINATION: GENERAL: The patient is a well-developed, well-nourished white male. Appears his stated age. He is alert, oriented. His affect is appropriate. The patient is constantly in motion ____ with his left arm with his right and somewhat of a ____ motion. HEENT: Normocephalic, atraumatic. Extraocular eye muscles intact. Sclerae nonicteric. Mucous membranes are moist. NECK: Without adenopathy or JVD. The patient complains of some tingling down into his left arm. Has numbness and notes weakness, has pain in his elbow. HEART: Regular rate. LUNGS: Clear to auscultation. ABDOMEN: Nontender. EXTREMITIES: Lower extremity muscle strength is judged to be 5-/5 for the major muscle groups in the lower extremity. The patient without significant lordosis, or scoliosis as some kyphotic care to his upper thoracic area. The patient has some psoriatic lesions which are darkened and improving with his treatment for psoriatic arthritis. IMPRESSION: 1. History of cervical radiculopathy with pain radiating to left arm. 2. History of left cervical area C6-C7 with AP diameter of 0.9. The patient has a diameter at C5-C6 with moderate central canal stenosis with AP diameter of 0.7. 3. Cervical radiculopathy. 4. Gastroesophageal reflux. 5. Hypertension. 6. Hypercholesterolemia. 7. Hypothyroidism. 8. Degenerative joint disease. 9. Peripheral neuropathy. 10. Gout. 11. History of alcohol abuse. 12. Psoriasis. 13. Alcohol withdrawal. 14. Cardiac disease. RECOMMENDATIONS: We discussed treatment options with the patient. Risks and benefits of a cervical epidural steroid injection were again discussed. They include but are not limited to infection, worsening pain, no improvement in pain, nerve damage, trauma. The patient elects to proceed. PROCEDURE NOTE: The patient was taken to the procedure area. He was assisted in getting on the examination table. His back was sterilely prepped with a Betadine solution at C1 through T2 area. This area was then sterilely draped. The patient was placed on a pillow for support and improvement of positioning. The patient was somewhat uncomfortable and continued to rise during the [facility] [address] [place] [address] PAIN MANAGEMENT CONSULTATION Name: DANA CID Room: [facility]#: [id number] Admission: 01/29/19 Attend Phys: Georgia Velazquez MD Discharge: Date of : 59 Report #: [id number] procedure. He was able to stay still enough to get the procedure done. His back was infiltrated at C7-T1 with 0.25% bupivacaine with using an 18-gauge needle. Aspiration was negative. A 17-gauge Tuohy with loss of resistance technique was then used to gain access to the epidural space. There was no CSF, heme or paresthesia. A total of 120 mg triamcinolone was injected. The patient tolerated the procedure well. There were no complications. He remained in the pain clinic for an appropriate amount of time. Approximately 15 seconds fluoroscopy time was used. The patient will follow up in the future as needed. We would like to thank you for letting us participate in his care. We hope he continues to improve. By: [id number]. Gopal Velazquez MD /nt
== END | disposition home or self-care (01) ==
LOC: M.PC 02:22
DX: M54.12 Radiculopathy, cervical region (principal); M48.02 Spinal stenosis, cervical region; I11.9 Hypertensive heart disease without heart failure; E78.00 Pure hypercholesterolemia, unspecified; E03.9 Hypothyroidism, unspecified; M19.90 Unspecified osteoarthritis, unspecified site; K21.9 Gastro-esophageal reflux disease without esophagitis; G62.9 Polyneuropathy, unspecified; M10.9 Gout, unspecified; Z98.890 Other specified postprocedural states; Z79.899 Other long term (current) drug therapy; Z88.8 Allergy status to other drugs, medicaments and biological substances